=== PATIENT | male | born 1935 | race Caucasian/White ===

== ENCOUNTER 2016-10-26 05:28 | Inpatient (IN) | payer MEDICARE, BC ==
[~2016-10-26] VITALS: Ht 182.9 cm; Wt 104.0 kg
--- NOTE | ~2016-10-26 | OR ---
ADMIT: 10/26/2016 RM/LOC: 510 [facility] MR#: [id number] [address] [address] [address] [place] [address] Operative/Delivery Room Report SEX: M AGE: 81 : 1935 SURGERY DATE: 10/26/2016 SURGEON: Jordy Culver MD PREOP DIAGNOSIS: Displaced comminuted right proximal humerus fracture of the surgical neck. POSTOP DIAGNOSIS: Displaced comminuted right proximal humerus fracture of the surgical neck. PROCEDURE: Open reduction and internal fixation, right proximal humerus fracture using a Synthes short humeral nail. CUSTOMER SERVICE LEADER: Yinka Dougherty PA-C ANESTHESIA: General. ESTIMATED BLOOD LOSS: 100 mL. COMPLICATIONS: None. CONDITION: Fair to recovery room. INDICATIONS: The patient is an 81-year-old male, who about a week and a half ago fell, injuring his right upper extremity. He was seen in the Emergency Department, x-rays were obtained, found to have a displaced proximal humerus fracture. He was placed into a sling and referred to our office for further evaluation and treatment. We discussed the patient's injury as well as treatment options with him. At this point, he did want to proceed with operative treatment of this. The procedure as well as risks and benefits were discussed with him at length. We did have him see Dr. Fontanez for preoperative medical evaluation as well. At this point, he does want to proceed with operative fixation of his proximal humerus fracture. We talked to him about using a short humeral nail for this. Once again, the procedure as well as risks and benefits were discussed at length, questions were answered, and did agree to proceed. DESCRIPTION OF PROCEDURE: After informed consent was obtained, the patient taken to the operating room, placed on the operating table in supine position. General anesthetic was administered. After adequate general anesthesia, the patient was then placed into a modified beach chair position. Using fluoroscopy, we were able to get good fluoroscopic views of the proximal humerus fracture. Once this was completed, the right shoulder was then prepped and draped in usual sterile fashion. We then brought the C-arm in again to take a quick AP fluoroscopic view. This was then backed out. We then made an anterior acromial incision through the skin and subcutaneous tissues. Hemostasis maintained using Bovie electrocautery. We then split the deltoid along its fibers entering the subacromial space. The patient's rotator cuff appeared to be intact at this point. We identified the sulcus on ADMIT: 10/26/2016 RM/LOC: 510 [facility] MR#: [id number] [address] [place] [id number] [address] [place] [address] Operative/Delivery Room Report SEX: M AGE: 81 : 1935 fluoroscopy and then split the rotator cuff longitudinally along its fibers using a 15 blade. Once this was completed, we then placed a guidewire into the proximal humerus into the humeral head to kind of use this as a joystick to assist in reduction. We then were able to get the humeral head in good position here. We then placed the guidewire into the sulcus. This was noted to be in good position. We then opened up the canal over the guidewire using a hand awl. Once this was completed, we then used a ball-tip guidewire and reducing the fracture, we were able to pass a ball-tipped guidewire across the fracture. Once this was completed, we elected to use a 9-mm diameter short Synthes humeral nail, placed this over the guidewire crossing the fracture. Once this was completed, we then removed the guidewire using a mallet with light mallet blows. We then seated the humeral nail. This appeared to be in good position and the fracture was well reduced at this point. Once we had seated this to the position that we wanted it, we placed the guide for the helical blade. We made a second incision distally, placed the guide on the lateral cortex of the humerus. We then placed the guidewire for the helical blade and was noted to be in good position on AP and lateral fluoroscopic view. We then measured and elected to use a 15-mm helical blade. We then used a lateral cortex reamer. We then placed the helical blade over the guidewire and using light mallet taps, passed this through the nail into the humeral head and seated this fully, it appeared to be in good position. Once this was completed, we took AP and lateral fluoroscopic views. The helical blade appeared to be well centered in the humeral head. Anatomic reduction on the AP view and the lateral view, the humeral shaft was still translated just a little bit anteriorly here. Once this was completed, we then placed the guide for the distal locking screws. We made a 3rd small stab incision, placed the guide, drilled, measured and placed 2 distal locking screws using standard AO technique. Once everything was locked in position, we then removed the guidewires as well as the nail inserting arm. We identified the end of the nail and placed a 0 degree end cap to lock the blade in a fixed angle position. Once this was completed, we took final AP and lateral ADMIT: 10/26/2016 RM/LOC: 510 [facility] MR#: [id number] [address] [place] [id number] [address] [place] [address] Operative/Delivery Room Report SEX: M AGE: 81 : 1935 fluoroscopic views. The Synthes short humeral nail appeared to be in good position and the fracture was well reduced at this point. We then copiously irrigated the wounds. The split in the rotator cuff was closed using 0 Vicryl in a eslaiq-om-rirtk fashion. The wounds once again copiously irrigated. The deltoid was reapproximated using #1 Vicryl in a [id number]-[id number]-[id number] fashion. Subcutaneous tissues were closed using 2-0 Vicryl in simple interrupted fashion and skin was closed skin tamika. We injected the subacromial space with additional 30 mL 0.5% Marcaine for postoperative pain control. A sterile compressive dressing was then applied consisting of Xeroform, plain gauze, ABDs, Medipore tape. Right upper extremity was placed into a shoulder immobilizer. The patient was then transferred to recovery room in fair condition. Jordy Culver MD/ mala JOB #: [id number] CC: Jordy Culver, Attending Physician Jelani Fontanez, Family Physician
[~2016-10-26 05:28] MED LIST: ASA CHILDREN'S81 MG PO; ASA325 MG PO; CARAFATE DPS1 GM PO; CELEBREX100 MG PO; CULTURELLE1 CAP PO; DITROPAN XL10 MG PO; DULCOLAX-DPS10 MG PR; FLEXERIL DPS5 MG PO; FLEXERIL-DPS10 MG PO; FLORINEF0.1 MG PO; HYDROCODONE 5MG/5 MG PO; KLONOPIN DPS0.5 MG PO; MAALOX DPS30 ML PO; METAMUCIL SF P3.4 GM PO; MILK OF MAGNESI10 ML PO; MIRALAX PACKET17 GM PO; OXY IR DPS5 MG PO; PRILOSEC DPS20 MG PO; PRO-AMATINE2.5 MG PO; PROTONIX40 MG PO; RESTASIS1 EACH OU; RESTORIL DPS30 MG PO; SENOKOT S1 TAB PO; TEARS NATURAL D15 ML OU; TUMS DPS500 MG PO; TYLENOL DPS325 MG PO; ULTRAM DPS50 MG PO; ZESTRIL DPS5 MG PO; ZOFRAN4 MG PO; ZOLOFT DPS50 MG PO
--- NOTE | 2016-11-02 07:29 | HP ---
ADMIT: 10/26/2016 RM/LOC: [facility] MR#: [id number] [address] [address] [address] [place] [address] Pre-OP History and Physical SEX: M AGE: 81 : 1935 DATE OF SERVICE: 10/26/2016 CHIEF COMPLAINT: Right proximal humerus fracture. HISTORY OF PRESENT ILLNESS: The patient is an 81-year-old male, who was at home on the 15 of October, fell injuring his right shoulder. He was seen in the Emergency Department, was found to have a right proximal humerus fracture, referred to our office for further evaluation and treatment. The patient denies any other injuries during the fall. We did review the x-rays from the Emergency Department, does have a displaced right proximal humerus fracture. We talked about treatment options at this point; with the amount of displacement, elected to proceed with an open reduction internal fixation of the right proximal humerus fracture. PAST MEDICAL HISTORY: Significant for: 1. Hypertension. 2. Irritable bowel syndrome. 3. Hyperlipidemia. 4. Diabetes type 2. 5. Arthritis. 6. Depression. 7. Anxiety disorder. CURRENT MEDICATIONS: 1. Aspirin. 2. Jagdish Contour test strips. 3. Lisinopril. 4. Metamucil. 5. Midodrine HCL. 6. Omeprazole. 7. Oxybutynin chloride. 8. Sertraline. 9. Triamcinolone. ALLERGIES: NO KNOWN DRUG ALLERGIES. SOCIAL HISTORY: The patient is a former smoker, quit in 1983. Social drinker at this point. Lives here in [place]. REVIEW OF SYSTEMS: Noncontributory. PHYSICAL EXAMINATION: HEENT: As per Dr. Fontanez's preop medical evaluation. HEART: As per Dr. Fontanez's preop medical evaluation. LUNGS: As per Dr. Fontanez's preop medical evaluation. ABDOMEN: As per Dr. Fontanez's preop medical evaluation. EXTREMITIES: Examination of the right upper extremity; significant amount of ADMIT: 10/26/2016 RM/LOC: [facility] MR#: [id number] [address] [address] [address] [place] [address] Pre-OP History and Physical SEX: M AGE: 81 : 1935 ecchymoses throughout the right upper extremity and chest wall here. Tenderness to palpation over the proximal humerus. He appears to be otherwise distally neurovascularly intact. LABORATORY AND X-RAY DATA: We did repeat some x-rays in the office, which did show a displaced proximal humerus fracture with some comminution noted here. This is of the surgical neck, the greater tuberosity does appear to be intact. ASSESSMENT: Right proximal humerus fracture. PLAN: We discussed treatment options with the patient today. At this point, I would like to proceed with an open reduction internal fixation of this, we will probably try to use a Synthes short humeral nail for this. We did discuss the procedure as well as risks and benefits with him, questions were answered, he does agree to proceed. Jordy Culver MD/ mala JOB #: [id number] CC: Jordy Culver, Attending Physician UNKNOWN, Family Physician
--- NOTE | 2016-11-10 14:56 | CO ---
ADMIT: 10/26/2016 RM/LOC: [facility] MR#: [id number] [address] [address] [address] [place] [address] Consultation SEX: M AGE: 81 : 1935 DATE OF CONSULTATION: 10/26/2016 ATTENDING PHYSICIAN: Jordy Culver MD CONSULTING PHYSICIAN: Jelani Fontanez MD CHIEF COMPLAINT: Right shoulder and upper arm pain. CLINICAL HISTORY: The patient is an 81-year-old white male, admitted at this time for open reduction internal fixation of a comminuted impacted right proximal humeral fracture. The patient has been seen by Dr. Culver and is scheduled for surgery on his right shoulder/right proximal humerus on 10/26/2016. The patient is noted to have fallen on 10/15/2016. He got weak and lightheaded and fell while he was out picking up his morning newspaper on the morning of 10/15/2016, landing on his right side after trying to break his fall with his right arm. He had immediate onset of pain in the right shoulder and was unable to move his arm. He was brought to the emergency room by family, where he was evaluated. X-ray showed a somewhat comminuted, impacted, but displaced proximal humeral fracture. Orthopedics saw him in consultation and subsequently has been seen by Dr. Culver at his office and is now admitted for open reduction internal fixation or pinning of this proximal humeral fracture. The patient has been in an arm immobilizer since the time of his injury. He is admitted at this time, as noted, for Orthopedic surgery. PAST MEDICAL HISTORY: The patient was last hospitalized here at [facility] on 08/30/2015. At that time, he underwent a left total hip arthroplasty. He did well following his hip replacement surgery. He also is noted to have had a right total hip in October of 2010. The patient has been hospitalized once since that admission of 08/30/2015. At that time, he was hospitalized at [facility], [facility] was on diversion and he was shipped to [facility] and hospitalized for 3-4 days for cardiac evaluation because of lightheadedness and near syncope. He was diagnosed with orthostatic hypotension at that time. He has continued to have some ongoing difficulty with his orthostatic hypotension. His medical problems include: 1. Hypertension. 2. Hyperlipidemia. 3. Type 2 diabetes. 4. Chronic GERD. 5. Chronic anxiety disorder. 6. Depressive disorder, not otherwise specified. 7. BPH. 8. Degenerative disk disease of the cervical spine with chronic cervicalgia. 9. Irritable bowel syndrome with constipation. 10.Orthostatic hypotension. PAST SURGICAL HISTORY: His prior surgeries, as noted, include a right total hip on 11/03/2010; a left total hip on 08/30/2015. He has also had previous ADMIT: 10/26/2016 RM/LOC: [facility] MR#: [id number] [address] [place] [id number] [address] [address] [place] [address] Consultation SEX: M AGE: 81 : 1935 outpatient cataract surgery. He has had previous umbilical hernia repair in 2004 and a left rotator cuff repair in 2007. No other recent surgical procedures. CURRENT MEDICATIONS: Include the followin. Lisinopril 10 mg daily, on hold since being seen in the ER on 10/15/2016. 2. Metamucil one scoop daily. 3. Midodrine 5 mg one tablet t.i.d. 4. Omeprazole 20 mg daily. 5. Ditropan ER 10 mg one daily. 6. Zoloft 50 mg daily. 7. Triamcinolone cream applied to his chronic eczema rash b.i.d. p.r.n. 8. Tramadol 50 mg one or two every 6 hours for pain. 9. Hydrocodone 5 mg one every 4 to 6 hours p.r.n. pain. ALLERGIES: NO KNOWN DRUG ALLERGIES. SOCIAL HISTORY: The patient is . He lives alone. He is a social drinker, consuming alcohol on a very limited basis, will have an occasional beer. He is a former smoker, he quit smoking greater than 25 years ago. He has no history of illicit drug use. No history of alcohol abuse. FAMILY HISTORY: There is a family history of hypertension, hyperlipidemia, type 2 diabetes, and depression. He denies any other significant chronic familial health problems. REVIEW OF SYSTEMS: CONSTITUTIONAL: He denies any fevers, chills, or night sweats. Since his fall on 10/15/2016, he has been having a great deal of pain, has been using pain medications which have subsequently caused him to have worsening of his chronic constipation and some abdominal discomfort. HEENT: He is having no new eye, ear, nose, or throat complaints. Vision is grossly intact. He is not having any significant hearing problems. No upper respiratory congestion. No swallowing difficulties. PULMONARY: No shortness of breath. No cough. CARDIAC: No chest pain. No palpitations. No history of coronary artery disease. GASTROINTESTINAL: History of chronic GERD and dyspepsia. Also has irritable bowel syndrome with some chronic abdominal pain. History of IBS with constipation. Increased constipation over the past 10 days because of his pain medications. GENITOURINARY: History of BPH. Does have some difficulty with frequency and urgency, is on Ditropan. No dysuria. No flank pain. ENDOCRINE: He is a type 2 diabetic. Blood sugars have been well controlled. MUSCULOSKELETAL: Generalized arthritic discomfort. He has done well with both hips following hip replacement surgery, still has some chronic low back pain. Chronic cervicalgia with intermittent difficulty with radicular right arm pain due to his cervical disk disease. Having severe pain in his right shoulder and arm due to his current fracture. Do note, also deformity of both ADMIT: 10/26/2016 RM/LOC: [facility] MR#: [id number] [address] [place], [place] [id number] [address] [place] [id number] Consultation SEX: M AGE: 81 : 1935 hands due to bilateral Dupuytren contracture. He also has some early neuropathy symptoms in both hands and feet due to his diabetes. NEUROLOGIC: Does have history of episodes of lightheadedness and dizziness. He has had some continued orthostatic hypotension. No syncope. Just gets lightheaded. No history of strokes, seizures, or TIAs. Does have some chronic occipital headaches related to his cervical disk disease. PSYCHIATRIC: History of depression and chronic anxiety. Symptoms have been well controlled with current medications. The patient has not been sleeping well due to the pain in his shoulder. INTEGUMENT: No rashes or worrisome skin lesions at this time. PHYSICAL EXAMINATION: VITAL SIGNS: At this time, his temp is 98.2, pulse is 65 and regular, respirations are 18, blood pressure is 120/62. His current weight is 236 pounds, height is 72 inches. GENERAL: The patient is an 81-year-old white male, who appears his stated age. He is moderately overweight. He is in some distress due to his ongoing right shoulder and arm pain. HEENT: Reveals his ears to be clear. Pupils are equal and reactive. Sclerae nonicteric. Conjunctivae noninflamed. Nose and throat are unremarkable at this time. Oropharynx is normal. Gag reflex is intact. Dentition is in fair repair. NECK: Supple. Thyroid not enlarged. No carotid bruits. No neck masses. No neck vein distention. LUNGS: Noted to be clear throughout. No dullness to percussion. No wheezes or rales. HEART: Has a regular rhythm without murmur. No evidence of failure. ABDOMEN: Somewhat protuberant, nondistended. Bowel sounds are normoactive. He has no masses or organomegaly. No hernias. Some mild diffuse tenderness, but no guarding or rigidity. GENITALIA: Normal male. EXTREMITIES: The patient has scars over both hips from previous bilateral total hip arthroplasties. Moderate degenerative changes of both knees. He has 1+ pedal and ankle edema, trace of pretibial edema. His right upper extremity is in an arm immobilizer. He has extensive bruising of his right anterior chest as well as his right upper arm with some bruising clear into the forearm from his recent fracture, marked tenderness over the proximal humerus, severe pain with any attempted movement of his right arm. Left upper extremity is unremarkable. NEUROLOGICAL: He is intact. He has no significant cognitive impairment. He is oriented x3. His balance is somewhat poor at this time. He is noted to have diminished sensation with changes of neuropathy in both hands and both feet. He has no diabetic foot or leg ulcerations. Do note, the significant Dupuytren contracture of both hands. ASSESSMENT AT THE TIME OF ADMISSION: 1. Comminuted displaced fracture of the right proximal humerus. 2. Right shoulder pain due to fractured humerus. 3. Status post fall on 10/15/2016. ADMIT: 10/26/2016 RM/LOC: [facility] MR#: [id number] [address] [place] [id number] [address] [place] [address] Consultation SEX: M AGE: 81 : 1935 4. Orthostatic hypotension. 5. Hypertension. 6. Chronic gastroesophageal reflux disease/esophageal reflux. 7. Hyperlipidemia. 8. Type 2 diabetes. 9. Depressive disorder, not otherwise specified. 10.Chronic anxiety disorder. 11.Advanced degenerative disk disease, cervical spine, with acquired cervical spinal stenosis. 12.Dupuytren contracture of both hands. 13.Benign prostatic hypertrophy. 14.Irritable bowel syndrome with constipation. PLAN: Plan is for Dr. Culver to admit the patient to [facility] on 10/26/2016. I see no medical contraindications to his planned ORIF of his fractured right shoulder. We will plan on following along and assisting with his medical management postoperatively. I have concerns about the patient's continued safety at home and possible need for jail unit placement postoperatively as he recovers from this surgery. Jelani Fontanez MD/ mala JOB #: [id number] CC: Jordy Culver MD, Attending Physician
--- NOTE | 2016-11-13 08:58 | DS ---
ADMIT: 10/26/2016 RM/LOC: 510 [facility] MR#: [id number] [address] [facility] [address] [place] [address] General Discharge Summary SEX: M AGE: 81 : 1935 ADMISSION DATE: 10/26/2016 DISCHARGE DATE: 10/29/2016 REASON FOR ADMISSION: This is an 81-year-old male, who fell on 10/15/2016 sustaining a right proximal humerus fracture. He was admitted for open reduction and internal fixation of the right proximal humerus fracture done by Dr. Culver. PREOPERATIVE DIAGNOSIS: Displaced comminuted right proximal humerus fracture of the surgical neck. POSTOPERATIVE DIAGNOSIS: Displaced comminuted right proximal humerus fracture of the surgical neck. PROCEDURE PERFORMED: Open reduction and internal fixation of right proximal humerus fracture using a [employer] short humeral nail. SURGEON: Jordy Culver MD [employer]PER[employer] PROCESSING: Yinka Dougherty PA-C ANESTHESIA: General. ESTIMATED BLOOD LOSS: 100 mL. COMPLICATIONS: None. CURRENT MEDICAL PROBLEMS: 1. Hypertension. 2. Hyperlipidemia. 3. Type 2 diabetes. 4. Chronic GERD. 5. Chronic anxiety disorder. 6. Depressive disorder. 7. BPH. 8. 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 9. Irritable bowel syndrome with constipation. 10.Orthostatic hypotension. HOSPITAL COURSE: The patient was admitted on 10/26/2016 after sustaining a fall and right proximal humerus fracture. He had an open reduction and internal fixation of right proximal humerus fracture, done successfully without any complications by Dr. Jordy Culver. Postoperatively, his pain was well controlled. He did suffer from some mild blood loss anemia. His hemoglobin dropped to 10.4 on 10/27/2016, but he remained hemodynamically stable and did not require blood transfusion. By postoperative day #2, he has been stable and doing well with physical therapy. On postoperative day #3, he was safe and ready for discharge with plans to follow up in Orthopedic Clinic with Dr. Culver in two weeks. ADMIT: 10/26/2016 RM/LOC: 510 [facility] MR#: [id number] [address] [facility] [address] [place] [address] General Discharge Summary SEX: M AGE: 81 : 1935 DISCHARGE MEDICATIONS: 1. Ambien 5 mg everyday. 2. Aspirin 81 mg everyday. 3. Ditropan 10 mg daily. 4. Metamucil twice a day. 5. MiraLax 17 g twice a day. 6. ProAmatine 2.5 mg three times a day. 7. Protonix 40 mg daily. 8. Zoloft 50 mg daily. 9. Ativan 0.5 mg every 5 hours as needed. 10.Hydrocodone acetaminophen 5/325 mg every 4 hours as needed. 11.Milk of magnesia 10 mL as needed. 12.Maalox 30 mL every 6 hours as needed. 13.Senokot one tablet twice a day as needed. 14.Tylenol 325 mg every 4 hours as needed. 15.Dulcolax 10 mg daily as needed. DISCHARGE INSTRUCTIONS: The patient was discharged home with instructions for right upper extremity exercises and immobilizer use for two weeks. Follow up in the Orthopedic office in two weeks with Dr. Culver. Follow up with primary care as directed. SERGIO Santoro / Jordy Culver MD / veritol JOB #: [id number] CC: Jordy Culver MD, Attending Physician Jelani Fontanez MD, Family Physician
== END 2016-10-29 10:45 | DRG 493 ==
LOC: 5MS 05:28 → WOR 05:28 → 5MS 05:28
PROVIDERS: ADMIT Orthopaedic Surgery
PROC: 0PSC04Z Reposition Right Humeral Head with Internal Fixation Device, Open Approach (ICD-10-PCS; principal; 2016-10-26)
DX: S42.211A Unspecified displaced fracture of surgical neck of right humerus, initial encounter for closed fracture (principal); K56.7 Ileus, unspecified; E11.40 Type 2 diabetes mellitus with diabetic neuropathy, unspecified; W18.30XA Fall on same level, unspecified, initial encounter; D50.0 Iron deficiency anemia secondary to blood loss (chronic); I10 Essential (primary) hypertension; E78.5 Hyperlipidemia, unspecified; K21.9 Gastro-esophageal reflux disease without esophagitis; M50.30 Other cervical disc degeneration, unspecified cervical region; K58.1 Irritable bowel syndrome with constipation; E66.9 Obesity, unspecified; Z68.31 Body mass index [BMI] 31.0-31.9, adult; N40.0 Benign prostatic hyperplasia without lower urinary tract symptoms; M72.0 Palmar fascial fibromatosis [Dupuytren]; M15.9 Polyosteoarthritis, unspecified; I95.1 Orthostatic hypotension; F32.9 Major depressive disorder, single episode, unspecified; F41.9 Anxiety disorder, unspecified; Z79.82 Long term (current) use of aspirin; Z87.891 Personal history of nicotine dependence; Z96.643 Presence of artificial hip joint, bilateral

== ENCOUNTER 2016-10-29 11:07 | Inpatient (IN) | payer MEDICARE, BC ==
[~2016-10-29] VITALS: Ht 182.9 cm; Wt 105.0 kg
--- NOTE | 2016-11-01 12:25 | NUR ---
MDS INTERVIEW 3.0 DONE WITH ADMISSION TO [facility] ON 10/29/16: PT. IS ALERT, ORIENTED AND COGNTION IS INTACT. PT. IS A GOOD HISTORIAN AND LIKES TO JOKE WITH NURSING STAFF. DENIES ANY DEPRESSION, STATES HIS APPETITE IS PRETTY GOOD BUT SO CONSTIPATED RIGHT NOW, HE'S AFRAID TO EAT. STATED HAD TOLD HIM HE NEEDED TO EAT AND DRINK TO GET HIS BOWELS TO FUNCTION BETTER. STATES SLEEPS PRETTY GOOD AT NIGHT. PRIOR TO ADMISSION TO HOSPITAL AND [facility], HE WAS VERY INDEPENDENT AT HOME. DOES EVERYTHING FOR HIMSELF. HIS WAS PRESENT ON ADMISSION AND AFTER SHE LEFT HE STATES THEY DON'T LIVE TOGETHER BUT THEY GET ALONG VERY WELL. SHE IS ALWAYS THERE TO HELP HIM WHEN HE NEEDS. PT. GOAL IS TO RETURN HOME BEFORE AND WANTS TO BE INDEPENDENT HE WAS PRIOR, BUT KNOWS IT MAY TAKE SOME TIME. VERY MOTIVATED. STATES HE DOES NOT HAVE ALOT OF PAIN, BUT IF HIS RT ARM IS TOUCHED OR MOVED MUCH ITS PAINFUL. TAKES PAIN PILLS AT TIMES BUT NOT THAT OFTEN HE SAYS, STATE HE WILL ASK FOR TYLENOL IF HE NEEDS IT. PT. STATES HE HAD FALLEN AT HOME AND HAS HAD FALLS BEFORE BUT NEVER GOT HURT, FOR WHATEVER REASONS HE SAYS, I REALLY FELL HARD AND HAD A DIFFICULT TIME GETTING UP. FX HIS LT. HUMERUS. HIS ARM IS IN A IMMOBLIZER AND HE HAS EXTENSIVE BRUISING TO HIS UPPER BODY. MDS 3.0 INTERVIEW AND ADMISSION COMPLETED AT THIS TIME AND GLAD HE CAME TO SKILLED AND WISHED HIM A GOOD REST OF THE DAY.
--- NOTE | 2016-11-02 03:44 | NUR ---
PT REQUESTS NOT TO HAVE TO USE HIS URINAL ANY LONGER; IT IS DIFFICULT FOR HIM TO USE WITH HIS LEFT HAND, SPILLS THE URINE. PARK GUIDE HAS ASSISTED HIM TO TOILET T/O THE NIGHT. WILL UPDATE DAY SHIFT REGARDING HIS REQUEST.
--- NOTE | 2016-11-10 09:15 | NUR ---
MDS 3.0-OBSERVATION AND ASSISTANCE: PT. ASSISTED FROM BATHROOM, NEEDED ASSISTANCE WITH PERICARES AFTER BM. DIFFICULT FOR HIM TO BALANCE HIMSELF DUE TO RT ARM IN A IMMOBOLIZER AND CLEAN HIMSELF. GAIT IS STEADY, LIMITED ASSISTANCE OF ONE FOR BALANCE. AMBULATED TO RECLINER. DENIES ANY DISCOMFORTS OR PAIN AT THIS TIME. ALERT AND ORIENTED. PLANS FOR DISCHARGE ON WEDNESDAY TO HOME. WISHED PT. A GOOD DAY.
--- NOTE | 2016-11-13 10:56 | NUR ---
PATIENT NOTE [facility] WILL BE D/C TO HOME THIS A.M. FOLLOWING A 15 DAY STAY. HE WILL HAVE [facility] GARC[facility] FOLLOWING HIM AT HOME FOR CONTINUED NURSING AND THERAPY SERVICES. [facility] WAS CHOSEN BY [facility] DUE TO HIM HAVING THEM RECENTLY. I CALLED AND FAXED THE REFERRAL [facility] C AND [facility] IS AWARE OF THE D/C TODAY. BLANCA VOICES NO CONCERNS WITH GETTING OR PREPARING MEALS. HE REMAINS ALERT AND ORIENTED AND DOES NOT VOICE ANY CONCERNS WITH HIS CARE OR STAY. BL[facility] CAME TO SKILLED CARE FOR SHORT TERM REHAB FOLLOWING A FALL AND HOME WHERE HE SUSTAINED A FX. HUMERUS. HE WAS HERE UNDER HIS MEDICARE BENEFITS WITH THERAPY THE SKILLED SERVICE. I WISHED HIM WELL AT HOME.
[2016-11-13] MEDS ORDERED: MIDODRINE HCL5 MG PO (20:19)
[2016-11-13] MEDS ORDERED: ZOLOFT DPS50 MG PO (20:19)
[2016-11-13] MEDS ORDERED: METAMUCIL SF P3.4 GM PO (20:20)
[2016-11-13] MEDS ORDERED: PRILOSEC DPS20 MG PO (20:20)
[2016-11-13] MEDS ORDERED: ASA CHILDREN'S81 MG PO (20:20)
[2016-11-13] MEDS ORDERED: DITROPAN XL10 MG PO (20:20)
[2016-11-13] MEDS ORDERED: MILK OF MAGNESI10 ML PO (20:21)
[2016-11-13] MEDS ORDERED: POLYETHYLENE GL17 GM PO (20:21)
[2016-11-13] MEDS ORDERED: MAALOX DPS30 ML PO (20:21)
[2016-11-13] MEDS ORDERED: TUMS DPS500 MG PO (20:21)
[2016-11-13] MEDS ORDERED: TYLENOL DPS325 MG PO (20:22)
== END 2016-11-13 13:15 | disposition home health service (06) | DRG 561 ==
LOC: SNU 11:07
PROVIDERS: ADMIT Family Medicine
PROC: 3E0234Z Introduction of Serum, Toxoid and Vaccine into Muscle, Percutaneous Approach (ICD-10-PCS; principal; 2016-10-29)
PROC: F08Z4ZZ Home Management Treatment (ICD-10-PCS; principal; 2016-10-29)
PROC: F07Z9ZZ Gait Training/Functional Ambulation Treatment (ICD-10-PCS; principal; 2016-10-29)
DX: S42.211D Unspecified displaced fracture of surgical neck of right humerus, subsequent encounter for fracture with routine healing (principal); E11.40 Type 2 diabetes mellitus with diabetic neuropathy, unspecified; D50.0 Iron deficiency anemia secondary to blood loss (chronic); W18.30XD Fall on same level, unspecified, subsequent encounter; I10 Essential (primary) hypertension; E78.5 Hyperlipidemia, unspecified; K21.9 Gastro-esophageal reflux disease without esophagitis; M50.30 Other cervical disc degeneration, unspecified cervical region; K58.1 Irritable bowel syndrome with constipation; Z23 Encounter for immunization; Z68.31 Body mass index [BMI] 31.0-31.9, adult; E66.9 Obesity, unspecified; N40.0 Benign prostatic hyperplasia without lower urinary tract symptoms; M72.0 Palmar fascial fibromatosis [Dupuytren]; M15.9 Polyosteoarthritis, unspecified; I95.1 Orthostatic hypotension; F32.9 Major depressive disorder, single episode, unspecified; F41.9 Anxiety disorder, unspecified; Z87.891 Personal history of nicotine dependence; Z96.643 Presence of artificial hip joint, bilateral